=== PATIENT | female | born 1970 | race Asian ===

== ENCOUNTER → 2023-04-20 | Outpatient (CLI) | payer BC, SELFPAY ==
--- NOTE | 2023-04-20 13:05 | BI_ITS ---
MAMMOGRAPHY - BILATERAL SCREENING REASON FOR EXAM: Female, 52 years old. Routine annual screening examination. PERTINENT HISTORY: Non-contributory. TECHNIQUE: Digital bilateral breast marlin (3D mammographic acquisition) in the CC and MLO projections. 2-D mediolateral oblique (MLO) and craniocaudad (CC) views of both breasts were obtained. CAD: Full Field Digital Mammography with Computer Added Detection was performed. COMPARISON: Comparison is made with prior study September 10, 2010. FINDINGS: Breast Composition: The breasts are heterogeneously dense, which may obscure small masses. There are no dominant masses or suspicious calcifications. Stable small benign-appearing bilateral axillary lymph nodes. No other significant abnormalities are identified. There has been no significant change since the prior study. BI/SCRN MAMM (CAD)W/MARLIN BILAT IMPRESSION: Stable bilateral screening mammogram. Yearly follow-up mammogram recommended. (A) ASSESSMENT CATEGORY: BIRADS Category 2: Benign. A letter regarding these results will be sent to the patient by the facility within 30 days. Approximately 10% of breast cancers are not detected by mammography. A normal mammogram should not delay biopsy of a clinically suspicious abnormality. [id number] Electronically Signed: Tae Osman MD at 14:05 EDT ,
--- NOTE | 2023-04-20 13:06 | BD_ITS ---
STUDY: DUAL ENERGY X-RAY ABSORPTIOMETRY / DXA REASON FOR EXAM: Female, 52 years old. [id number] TECHNIQUE: Bone Mineral Density (BMD) measurements of lumbar spine and bilateral hips were obtained. COMPARISON: None. FINDINGS: Lumbar Spine (L1-L4): g/cm2 (0.947) / T-score (-0.9) / Z-score (0.1) Findings are suggestive of normal bone density with a low fracture risk. Left Femur Total: g/cm2 (0.799) / T-score (-1.2) / Z-score (-0.6) Left Femoral Neck: g/cm2 (0.606) / T-score (-2.2) / Z-score (-1.2) Right Femur Total: g/cm2 (0.781) / T-score (-1.3) / Z-score (-0.7) Right Femoral Neck: g/cm2 (0.614) / T-score (-2.1) / Z-score (-1.2) BD/Dexa Bone Density Study IMPRESSION: The patient is considered osteopenic as outlined below according to World [employer] Organization (WHO) criteria with a high fracture risk. Reference Information: The T-score is the number of standard deviations above or below the standard which is normal for young adults at their peak bone mineral density. The World Health Organization (WHO) interprets the T-scores as follows: Above -1 Normal bone density Between -1 and -2.5 Osteopenia Equal to / or below -2.5 Osteoporosis As a practical clinical guideline, osteopenia may be graded as follows: Mild -1 through -1.5 Moderate -1.6 through -2.0 Severe -2.1 through -2.4 The Z-score is the number of standard deviations above or below age-matched controls. A Z-score of less than -1.5 would be considered abnormal. References: 1. NIH Osteoporosis and Related Bone Diseases www osteo.org 2. International Society for Clinical Densitometry www iscd.org 3. National Osteoporosis Foundation www nof.org Electronically Signed: Tae Osman MD at 13:30 EDT ,
== END | disposition home or self-care (01) ==
PROVIDERS: PCP Internal Medicine; Referring Provider Internal Medicine; Visit Provider Internal Medicine
DX: Z78.0 Asymptomatic menopausal state (principal); Z12.31 Encounter for screening mammogram for malignant neoplasm of breast; R94.31 Abnormal electrocardiogram [ECG] [EKG]
CPT/HCPCS: 77063; 77067; 77080; 93225; 93226

== ENCOUNTER → 2023-04-27 | Outpatient (CLI) | payer BC, SELFPAY ==
--- NOTE | 2023-04-27 12:59 | ECHOD_ITS ---
Reason For Study: ABN EKG Procedure This was a 2D Doppler, Color Flow transthoracic echocardiogram. Exam performed in department. Left Ventricle Normal LV size. Apical false tendon noted. Left ventricular systolic function is normal. The estimated ejection fraction is 65 %. Stage 1 diastolic dysfunction. No regional wall motion abnormalities noted. Right Ventricle Normal RV size. Normal systolic function. Atria The left atrium is mildly enlarged. Normal right atrium. Mitral Valve Mild focal mitral valve thickening. Moderate mitral valve prolapse, bileaflet. There is no mitral valve stenosis. Mild-Moderate (1-2+) mitral valve insufficiency. Tricuspid Valve Normal tricuspid valve. Mild (1+) tricuspid valve insufficiency. Right ventricular systolic pressure estimated to be 27 mmHg. Aortic Valve Trisinus/trileaflet aortic valve. Pulmonic Valve The pulmonic valve is not well visualized. Mild (1+) pulmonic valve insufficiency. Great Vessels Normal aortic root. Pericardium/Pleural No pericardial effusion. MMode/2D Measurements & Calculations LVIDd: 5.4 cm IVSd: 0.79 cm LAV(MOD-bp): 62.2 ml LVIDs: 3.8 cm LVPWd: 0.80 cm LAV(MOD-bp) Indexed: 35.1 ml/m2 RVDd: 3.4 cm FS: 29.0 % LAV(MOD-sp2): 52.2 ml LAV(MOD-sp4): 58.0 ml SV(MOD-sp4): 54.8 ml SV(sp4-el): 60.3 ml LVAd ap4: 28.8 cm2 LVLd ap4: 7.8 cm EDV(MOD-sp4): 86.0 ml EDV(sp4-el): 90.0 ml LVAs ap4: 14.8 cm2 LVLs ap4: 6.3 cm ESV(MOD-sp4): 31.2 ml ESV(sp4-el): 29.7 ml EF(MOD-sp4): 63.8 % EF(sp4-el): 67.0 % LA A4 area: 21.6 cm2 LA dimension(2D): 4.2 cm RA A4 area: 14.9 cm2 TAPSE: 2.6 cm Time Measurements MV dec time: 0.24 sec Doppler Measurements & Calculations MV E max jamil: 83.6 cm/sec Lat Peak E' Jamil: 11.8 cm/sec Med Peak E' Jamil: 9.5 cm/sec MV A max jamil: 87.9 cm/sec E/E' lat: 7.1 E/E' med: 8.8 MV E/A: 0.95 MV V2 max: 94.1 cm/sec Ao V2 max: 124.4 cm/sec MV max P.5 mmHg MV dec slope: 355.0 cm/sec2 Ao max P.2 mmHg MV V2 mean: 47.4 cm/sec Ao V2 mean: 91.3 cm/sec MV mean P.2 mmHg Ao mean P.7 mmHg MV V2 VTI: 46.4 cm Ao V2 VTI: 30.1 cm AV (velocity ratio): 0.80 LV V1 max: 100.8 cm/sec PA V2 max: 102.5 cm/sec TR max jamil: 245.8 cm/sec LV V1 max P.1 mmHg PA V2 mean: 68.3 cm/sec TR max P.2 mmHg LV V1 mean P.4 mmHg LV V1 mean: 72.5 cm/sec LV V1 VTI: 24.0 cm ECHO/Echo Complete Interpretation Summary Normal LV systolic function. No previous study to compare. The estimated ejection fraction is 65 %. Moderate mitral valve prolapse, bileaflet Mild-Moderate (1-2+) mitral valve insufficiency. Mild (1+) tricuspid valve insufficiency. The left atrium is mildly enlarged. Ordering Physician: Stephanie Dubon Referring Physician: Stephanie Dubon Performed By: Kelli Lomeli RCS
== END | disposition home or self-care (01) ==
PROVIDERS: PCP Internal Medicine; Referring Provider Internal Medicine; Visit Provider Internal Medicine
DX: R94.31 Abnormal electrocardiogram [ECG] [EKG] (principal)
CPT/HCPCS: 93306

== ENCOUNTER → 2023-12-27 | Outpatient (CLI) | payer BC, SELFPAY | END | disposition home or self-care (01) | LOC: PSN 11:57 | PROVIDERS: PCP Internal Medicine; Referring Provider Internal Medicine Cardiovascular Disease; Visit Provider Internal Medicine Cardiovascular Disease | DX: I34.1 Nonrheumatic mitral (valve) prolapse (principal) | CPT/HCPCS: 93225; 93226 ==

== ENCOUNTER → 2024-01-10 | Outpatient (CLI) | payer BC, SELFPAY ==
--- NOTE | 2024-01-10 13:00 | ECHOD_ITS ---
Reason For Study: Mitral Valve Prolapse Procedure This was a 2D Doppler, Color Flow transthoracic echocardiogram. Exam performed in department. Left Ventricle Normal left ventricle. Left ventricular systolic function is normal. The estimated ejection fraction is 55 %. No regional wall motion abnormalities noted. Right Ventricle Normal RV size. Normal systolic function. Atria Normal left atrium. Normal right atrium. Mitral Valve Bileaflet diffuse mitral valve thickening. Bileaflet mitral valve prolapse. Mild (1+) eccentric mitral valve insufficiency. Tricuspid Valve Normal tricuspid valve. Mild (1+) tricuspid valve insufficiency. Pulmonary artery systolic pressure is 30 mmHg. Aortic Valve Normal aortic valve. Trisinus/trileaflet aortic valve. Pulmonic Valve Normal pulmonic valve. Great Vessels Normal aortic root. The pulmonary artery is normal size. Normal inferior vena cava. Pericardium/Pleural No pericardial effusion. MMode/2D Measurements & Calculations LVIDd: 5.1 cm IVSd: 0.79 cm Ao root diam: 3.2 cm LVIDs: 3.3 cm LVPWd: 0.63 cm LA dimension: 4.0 cm RVDd: 4.0 cm FS: 35.7 % LAV(MOD-bp): 63.9 ml LA A4 area: 20.6 cm2 RA A4 area: 16.1 cm2 LAV(MOD-bp) Indexed: 37.3 ml/m2 LAV(MOD-sp2): 66.3 ml LAV(MOD-sp4): 56.2 ml TAPSE: 2.6 cm Time Measurements MV dec time: 0.18 sec Doppler Measurements & Calculations MV E max jamil: 80.6 cm/sec Lat Peak E' Jamil: 11.8 cm/sec Med Peak E' Jamil: 9.3 cm/sec MV A max jamil: 82.0 cm/sec E/E' lat: 6.8 E/E' med: 8.7 MV E/A: 0.98 MV V2 max: 100.4 cm/sec MV P1/2t max jamil: 97.8 cm/sec Ao V2 max: 107.2 cm/sec MV max P.0 mmHg MV P1/2t: 67.5 msec Ao max P.6 mmHg MV V2 mean: 58.0 cm/sec Ao V2 mean: 79.1 cm/sec MV mean P.6 mmHg MV dec slope: 424.4 cm/sec2 Ao mean P.8 mmHg MV V2 VTI: 34.7 cm MVA(P1/2t): 3.3 cm2 Ao V2 VTI: 26.3 cm AV (velocity ratio): 0.81 LV V1 max: 94.2 cm/sec MR max jamil: 541.5 cm/sec PA V2 max: 88.2 cm/sec LV V1 max P.6 mmHg MR max P.3 mmHg PA V2 mean: 63.8 cm/sec LV V1 mean P.2 mmHg MR mean jamil: 435.5 cm/sec LV V1 mean: 70.1 cm/sec MR mean P.3 mmHg LV V1 VTI: 21.2 cm MR VTI: 129.0 cm TR max jamil: 260.6 cm/sec TR max P.2 mmHg ECHO/Echo Complete Interpretation Summary Normal left ventricle. Left ventricular systolic function is normal. The estimated ejection fraction is 55 %. Bileaflet diffuse mitral valve thickening. Bileaflet mitral valve prolapse. Mild (1+) eccentric mitral valve insufficiency. Pulmonary artery systolic pressure is 30 mmHg. Ordering Physician: Darnell Phan Referring Physician: Stephanie Dubon D.O. Performed By: Cortez Bridges RCS
== END | disposition home or self-care (01) ==
LOC: CVS 12:55
PROVIDERS: PCP Internal Medicine; Referring Provider Internal Medicine Cardiovascular Disease; Visit Provider Internal Medicine Cardiovascular Disease
DX: I34.1 Nonrheumatic mitral (valve) prolapse (principal)
CPT/HCPCS: 93306

== ENCOUNTER → 2024-07-13 | Outpatient (CLI) | payer BC, SELFPAY ==
--- NOTE | 2024-07-13 13:52 | BI_ITS ---
MAMMOGRAPHY - BILATERAL SCREENING REASON FOR EXAM: Female, 53 years old. Routine annual screening examination. PERTINENT HISTORY: Non-contributory. TECHNIQUE: Digital bilateral breast marlin (3D mammographic acquisition) in the CC and MLO projections. 2-D mediolateral oblique (MLO) and craniocaudad (CC) views of both breasts were obtained. CAD: Full Field Digital Mammography with Computer Added Detection was performed. COMPARISON: Comparison is made with prior study April 20, 2023. FINDINGS: Breast Composition: The breasts are heterogeneously dense, which may obscure small masses. There are no dominant masses or suspicious calcifications. Stable small benign-appearing bilateral axillary lymph nodes. No other significant abnormalities are identified. There has been no significant change since the prior study. BI/SCRN MAMM (CAD)W/MARLIN BILAT IMPRESSION: Stable bilateral screening mammogram. Yearly follow-up mammogram recommended. (A) ASSESSMENT CATEGORY: BIRADS Category 2: Benign. A letter regarding these results will be sent to the patient by the facility within 30 days. Approximately 10% of breast cancers are not detected by mammography. A normal mammogram should not delay biopsy of a clinically suspicious abnormality. [id number] Electronically Signed: Tae Osman MD at 14:27 EDT ,
== END | disposition home or self-care (01) ==
LOC: OPBI 13:52
PROVIDERS: PCP Internal Medicine; Referring Provider Internal Medicine; Visit Provider Internal Medicine
DX: Z12.31 Encounter for screening mammogram for malignant neoplasm of breast (principal)
CPT/HCPCS: 77063; 77067

== ENCOUNTER → 2024-07-19 | Outpatient (CLI) | payer BC, SELFPAY | END | disposition home or self-care (01) | LOC: PSN 11:57 | PROVIDERS: PCP Internal Medicine; Referring Provider Internal Medicine Cardiovascular Disease; Visit Provider Internal Medicine Cardiovascular Disease | DX: I34.1 Nonrheumatic mitral (valve) prolapse (principal); I49.3 Ventricular premature depolarization | CPT/HCPCS: 93225; 93226 ==

== ENCOUNTER 2024-07-24 13:25 | Outpatient (CLI) | payer BC, SELFPAY ==
--- NOTE | 2024-07-24 13:27 | STE_ITS ---
Reason For Study: Mitral Valve Prolapse Stress Results Protocol: [facility] Protocol Maximum Predicted HR: 166 bpm Target HR: 141 bpm % Maximum Predicted HR: 93 % DurationHeart Rate Stage (mm:ss) (bpm) BP Comment Baseline 74 118/70No Chest Pain [facility] Protocol Stage I 3:00 104 116/66No Chest Pain [facility] Protocol Stage II 3:00 113 132/64No Chest Pain [facility]one Protocol Stage III 3:00 137 140/66No Chest Pain [facility] Protocol Stage IV 1:00 155 / No Chest Pain; Mild Dyspnea Recovery 91 104/66No Chest Pain Stress Duration: 10:00 mm:ss Maximum Stress HR: 155 bpm METS: 13 Baseline Echocardiogram Findings Stress Echo Wall motion Data Resting WM Intermediate WM Stress WM ECHO/Stress Test Echo w/o Contrast Interpretation Summary Exercise stress echo. 53-year-old lady with a history of chest pain and mitral valve disease. Resting EKG demonstrates sinus rhythm with a rate of 75 bpm T wave inversion is noted in leads II, III and aVF and premature ventricular complexes noted. The patient exercised ac cording to the regular Ramone protocol for total duration of 10 minutes attaining a maximum hea rt rate of 160 bpm which was 96% of max impacted heart rate the maximum workload was 13.4 metaboli c equivalents. At rest nonspecific ST changes noted above were noted at peak exercise upsloping S T changes were present. Occasional premature ventricular complexes were noted during the exerc ise and during recovery premature ventricular complexes were present. No clinical angina was n oted the test was terminated due to the target heart rate being achieved. The peak blood pressure is 140/66 which was a good blood pressure response to exercise good functional capacity was noted. Stress echocardiogram. The resting echocardiogram demonstrated low normal eject ion fraction with bileaflet prolapse and thickening of the mitral valves. The estimated ejection fraction at rest was 53%. At peak exercise there was thickening of all garcía reduction of the ventri cular cavity size peaking of ejection fraction of 65%. No wall motion abnormalities were noted. Conclusion: Exercise stress echo demonstrating no evidence of ischemia at a high workload. Excellent functional capacity. Resting bileaflet prolapse. Ordering Physician: Darnell Phan Referring Physician: Darnell Phan Performed By: Eleanor Juares, GREGORY, RVT
== END 2024-07-24 23:59 | disposition home or self-care (01) ==
LOC: CVS 13:27
PROVIDERS: PCP Internal Medicine; Referring Provider Internal Medicine Cardiovascular Disease; Visit Provider Internal Medicine Cardiovascular Disease
DX: I34.1 Nonrheumatic mitral (valve) prolapse (principal); I49.3 Ventricular premature depolarization
CPT/HCPCS: 93017; 93350